=== PATIENT | male | born 1955 | race Caucasian/White ===

== ENCOUNTER 2016-11-05 21:07 | Emergency (ER) | payer MEDICARE, OTHER ==
[2016-11-05 21:15] VITALS: BMI 23.6
--- NOTE | 2016-11-05 23:17 | PDOC ---
History of Present Illness - General History Source: Patient <Sandro Mullins - Last Filed: 11/06/16 02:53> - General History Source: Patient Exam Limitations: No Limitations - History of Present Illness Initial Comments: 11/05/16 23:24 The patient is a 60 year old male with significant past medical history of etoh abuse who presents to the ED for 2 days of left inguinal pain. Patient describes his pain as crampy, 10/10, and intermittent. He reports associated nausea and vomiting. Denies diarrhea. States for the past 2 days it has been difficult to have a bowel movement. Patient admits to lifting a heavy stove 4 days ago. The patient denies fever, chills, cough, SOB, chest pain, and palpitations. Allergies: NKDA Social History: etoh abuse. No tobacco or drug use reported. Past Surgical History: hernia repair PCP: None reported <Norma Caballero - Last Filed: 11/06/16 03:11> - General Chief Complaint: Pain, Acute Stated Complaint: PAIN Time Seen by Provider: 11/05/16 23:17 Past History - Surgical History Abdominal Surgery: Yes (HERNIA) - Psycho/Social/Smoking Cessation Hx Suicidal Ideation: No Smoking History: Never smoked Hx Alcohol Use: Yes Drug/Substance Use Hx: No Substance Use Type: Alcohol <Sandro Mullins - Last Filed: 11/06/16 02:53> <Norma Caballero - Last Filed: 11/06/16 03:11> - Past Medical History Allergies/Adverse Reactions: Allergies Allergy/AdvReac Type Severity Reaction Status Date / Time No Known Allergies Allergy Verified 08/17/15 14:38 Home Medications: Ambulatory Orders NK [No Known Home Medication] 04/24/15 Review of Systems - Review of Systems Able to Perform ROS?: Yes Comments:: 11/05/16 23:24 CONSTITUTIONAL: Absent: fever, no chills, no fatigue EYES: Absent: visual changes ENT: Absent: ear pain, no sore throat CARDIOVASCULAR: Absent: chest pain, no palpitations RESPIRATORY: Absent: cough, no SOB GI: +left inguinal pain, nausea, vomiting Absent: no constipation, no diarrhea GENITOURINARY: Absent: dysuria, no frequency, no hematuria MUSCULOSKELETAL: Absent: back pain, no arthralgia, no myalgia SKIN: Absent: rash NEURO: Absent: headache <Norma Caballero - Last Filed: 11/06/16 03:11> *Physical Exam - Vital Signs Last Vital Signs Temp Pulse Resp BP Pulse Ox 97.9 F 103 H 18 157/86 97 11/05/16 21:14 11/05/16 21:14 11/05/16 21:14 11/05/16 21:14 11/05/16 21:14 <SusannaSandro - Last Filed: 11/06/16 02:53> - Vital Signs Last Vital Signs Temp Pulse Resp BP Pulse Ox 97.9 F 103 H 18 157/86 97 11/05/16 21:14 11/05/16 21:14 11/05/16 21:14 11/05/16 21:14 11/05/16 21:14 - Physical Exam Comments: 11/05/16 23:24 GENERAL: +AOB. Well-appearing, well-nourished. No apparent distress. HEENT: Normocephalic, atraumatic. PERRL, EOM intact. CARDIOVASCULAR: Normal S1, S2. Regular rate and rhythm. PULMONARY: Clear to auscultation bilaterally. ABDOMEN: Soft, non-distended, tenderness in the left inguinal region. Slight guarding. No rebound. Normoactive bowel sounds. EXTREMITIES: Normal ROM in all four extremities. No gross deformities. SKIN: Warm, dry. No rash NEUROLOGICAL: No focal neurological deficits. <Norma Caballero - Last Filed: 11/06/16 03:11> ED Treatment Course - LABORATORY CBC & Chemistry Diagram: 11/06/16 00:15 11/06/16 00:15 <RajatdonellraSandro - Last Filed: 11/06/16 02:53> - LABORATORY CBC & Chemistry Diagram: 11/06/16 00:15 11/06/16 00:15 - RADIOLOGY Radiograph Interpretation: 11/06/16 03:10 Exam: Noncontrast CT abdomen and pelvis Reviewed by Imaging online communications specialist: Findings: The lung bases are clear. The liver, gallbladder spleen and pancreas all have a normal unenhanced appearance. The adrenal glands are unremarkable. The kidneys have a normal unenhanced appearance. No calculi are seen. There is no hydronephrosis or hydroureter. The gastrointestinal tract does not appear obstructed. No thickened or dilated bowel is seen. The appendix is not identified. There is no cecal thickening or pericecal inflammatory change. There is no mesenteric infiltration. There is no free fluid. The urinary bladder, prostate and seminal vesicles are unremarkable. Tiny fat-containing inguinal hernias are noted bilaterally. No abdominal or pelvic adenopathy is seen. No lytic or blastic destructive osseous lesions are seen. Impression: Tiny fat-containing inguinal hernias noted bilaterally. No inflammatory process identified in the abdomen or pelvis. No abdominal mass, adenopathy or collection seen. No obstructing urinary tract calculi or evidence of urinary tract obstruction seen. <Norma Caballero - Last Filed: 11/06/16 03:11> Medical Decision Making - Medical Decision Making 11/06/16 02:54 Dr. Mullins: The scribe's documentation has been prepared under my direction and personally reviewed by me in its entirery. I confirm that the note above accurately reflects all work, treatment, procedures, and medical decision making performed by me. Pt feels better. Pt to follow up with general surgery if pain persists. <Sandro Mullins - Last Filed: 11/06/16 02:53> *DC/Admit/Observation/Transfer - Discharge Dispostion Admit: No <Sandro Mullins - Last Filed: 11/06/16 02:53> - Attestations Scribe Attestion: 11/05/16 23:25 Documentation prepared by Norma Caballero, acting as medical staff director for Sandro Mullins MD/DO. <Norma Caballero - Last Filed: 11/06/16 03:11> Diagnosis at time of Disposition: Abdominal pain Qualifiers: Abdominal location: left lower quadrant Qualified Code(s): R10.32 - Left lower quadrant pain - Discharge Dispostion Disposition: HOME Condition at time of disposition: Improved - Referrals Referrals: Ehsan Smith MD [Staff Physician] - - Patient Instructions Printed Discharge Instructions: DI for Abdominal Pain-Adult Additional Instructions: Please follow up with general surgery if pain persists.. No heavy lifting. Avoid alcohol in excess Print Language: FRENCH
[2016-11-05] MEDS ORDERED: morphine CARPU-JECT 2 MG/1 ML DISP.SYRIN IVPUSH ONE (23:18)
[2016-11-05] MEDS ORDERED: ONDANSETRON 4 MG/2 ML VIAL IVPUSH STA (23:18)
[2016-11-05] MEDS ORDERED: SODIUM CHLORIDE 1,000 ML IV STA (23:18)
[2016-11-06] MEDS ORDERED: morphine CARPU-JECT 2 MG/1 ML DISP.SYRIN ONE (00:21)
[2016-11-06 00:22] LABS: BASOPHIL 1.6 % (0-2.0); EOSINOPHIL 1.6 % (0-4.5); MCH 30.2 pg (25.7-33.7); MCHC 33.4 g/dl (32.0-35.9); MEAN CELL VOLUME 90.6 fl (80-96); MEAN PLT VOLUME 6.8 fl (7.5-11.1); NEUTROPHILS 58.9 % (42.8-82.8); PLATELET COUNT 187 K/MM3 (134-434); RDW 13.1 % (11.9-15.9); WHITE BLOOD COUNT 5.3 K/mm3 (4.0-10.0)
[2016-11-06 00:34] LABS: INR 0.89 (0.82-1.09); PROTHROMBIN TIME (PATIENT) 9.8 SEC (9.98-11.88)
[2016-11-06] MEDS ORDERED: ONDANSETRON 4 MG/2 ML VIAL ONE (00:34)
[2016-11-06 00:44] LABS: ALBUMIN 3.8 g/dl (3.4-5.0); ANION GAP 11 (8-16); CALCIUM 8.8 mg/dL (8.5-10.1); CO2 25 mmol/L (21-32); GLUCOSE,RANDOM 95 mg/dL (74-106); MAGNESIUM 2.3 mg/dL (1.8-2.4)
[2016-11-06 00:48] LABS: ALK PHOS 96 U/L (45-117); COCKROFT - GAULT 85.23; SGOT/AST 84 U/L (15-37); SGPT/ALT 108 U/L (12-78)
[2016-11-06 02:55] VITALS: BP 134/82; PULSE 88; TEMP 98
== END 2016-11-06 03:08 | disposition home or self-care (01) ==
LOC: JER 21:07
PROC: 3E033NZ Introduction of Analgesics, Hypnotics, Sedatives into Peripheral Vein, Percutaneous Approach (ICD-10-PCS; principal; 2016-11-05)
PROC: 3E033GC Introduction of Other Therapeutic Substance into Peripheral Vein, Percutaneous Approach (ICD-10-PCS; 2016-11-05)
DX: R10.32 Left lower quadrant pain (principal)
CPT/HCPCS: 36415; 74176-TC; 80053; 83690; 83735; 85025; 85610; 99283-25